=== PATIENT | male | born 2000 | race African-American/Black ===

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

== ENCOUNTER 2018-09-09 18:44 | Emergency (ER) | payer OTHER | END 2018-09-09 20:28 | disposition home or self-care (01) | LOC: ERS 18:44 | DX: Z20.2 Contact with and (suspected) exposure to infections with a predominantly sexual mode of transmission (principal); F32.9 Major depressive disorder, single episode, unspecified | CPT/HCPCS: 99283 ==

== ENCOUNTER 2019-03-08 13:49 | Emergency (ER) | payer OTHER ==
--- NOTE | 2019-03-08 14:53 | RAD ---
LUMBAR SPINE THREE VIEWS: HISTORY: Low back pain. FINDINGS: No fracture, subluxation, or bony destruction is seen. POS: [facility]
== END 2019-03-08 14:32 | disposition home or self-care (01) ==
LOC: SCSER 13:49
DX: S39.012A Strain of muscle, fascia and tendon of lower back, initial encounter (principal); F32.9 Major depressive disorder, single episode, unspecified; X50.1XXA Overexertion from prolonged static or awkward postures, initial encounter
CPT/HCPCS: 72100

== ENCOUNTER 2020-06-02 06:23 | Emergency (ER) | payer SELFPAY ==
[2020-06-02] MEDS ORDERED: Boostrix 0.5 ML (Tdap) VIAL ONE (06:46)
[2020-06-02] MEDS ORDERED: Bupivacaine 0.25% 10 ML VIAL ONE (06:46)
[2020-06-02] MEDS ORDERED: Lidocaine 1% w/Epinephrine 1:100K 20 ML VIAL ONE (06:52)
[2020-06-02] MEDS ORDERED: Bacitracin 1 PK ONE (07:25)
== END 2020-06-02 07:21 | disposition home or self-care (01) ==
LOC: ERS 06:23
DX: S61.012A Laceration without foreign body of left thumb without damage to nail, initial encounter (principal); F32.9 Major depressive disorder, single episode, unspecified; W26.0XXA Contact with knife, initial encounter
CPT/HCPCS: 12001; 90471; 90715; 96372; S0020

== ENCOUNTER 2020-06-23 20:51 | Emergency (ER) | payer SELFPAY ==
--- NOTE | 2020-06-24 06:25 | RAD ---
SINGLE VIEW CHEST: Date: 06/23/2020 COMPARISON: None. HISTORY: Cough and congestion for 2 weeks. FINDINGS: Single view of the chest shows a normal sized cardiomediastinal silhouette. Bilateral pulmonary vascu lar enlargement is seen. There is no evidence of consolidation, mass, or pleural effusions. Lungs are unremarkable. IMPRESSION: No evidence of acute cardiopulmonary disease. POS: [facility]
== END 2020-06-23 23:12 | disposition home or self-care (01) ==
LOC: ERS 20:51
DX: J06.9 Acute upper respiratory infection, unspecified (principal); F17.290 Nicotine dependence, other tobacco product, uncomplicated
CPT/HCPCS: 71045

== ENCOUNTER 2020-06-30 12:09 | Emergency (ER) | payer SELFPAY ==
[2020-06-30 13:23] LABS: Bilirubin Negative (Negative); Blood, Urine Negative (Negative); Clarity Clear (Clear); Glucose, Urine (Dipstick) Normal (Negative); Ketone, Urine Trace mg/dL (Negative); Leukocyte Negative Leu/uL (Negative); Nitrite Negative (Negative); Protein, Urine (Dipstick) 10 mg/dL (Neg-Trace); Specific Gravity, Urine 1.033 (1.002-1.036)
[2020-06-30] MEDS ORDERED: Azithromycin 250 MG TAB ONE ×2 (13:42→13:44)
[2020-06-30] MEDS ORDERED: cefTRIAXone\\ROCEPHIN 250 MG VIAL ONE (13:42)
[2020-06-30] MEDS ORDERED: Lidocaine 1% PF 5 ML VIAL ONE (13:43)
[2020-07-04 10:12] LABS: Chlamydia trachomatis by NAA Negative (Negative)
== END 2020-06-30 13:40 | disposition home or self-care (01) ==
LOC: ERS 12:09
DX: N34.2 Other urethritis (principal); F17.290 Nicotine dependence, other tobacco product, uncomplicated
CPT/HCPCS: 81003; 87491; 87591; 96372; 99283; J0696

== ENCOUNTER 2020-07-04 22:28 | Emergency (ER) | payer SELFPAY | END 2020-07-04 23:32 | disposition left against medical advice (07) | LOC: ERS 22:28 | DX: Z53.21 Procedure and treatment not carried out due to patient leaving prior to being seen by health care provider (principal) ==

== ENCOUNTER 2020-08-23 23:05 | Emergency (ER) | payer SELFPAY | END 2020-08-23 23:58 | disposition left against medical advice (07) | LOC: ERS 23:05 | DX: Z53.21 Procedure and treatment not carried out due to patient leaving prior to being seen by health care provider (principal) ==

== ENCOUNTER 2020-10-18 16:14 | Emergency (ER) | payer SELFPAY ==
[2020-10-18] MEDS ORDERED: cefTRIAXone\\ROCEPHIN 500 MG VIAL ONE (18:27)
[2020-10-18] MEDS ORDERED: Lidocaine 2% PF 5 ML VIAL ONE (18:27)
[2020-10-18] MEDS ORDERED: Lidocaine 1% w/Epinephrine 1:100K 20 ML VIAL ONE (18:28)
[2020-10-18] MEDS ORDERED: Lidocaine 1% PF 5 ML VIAL ONE (18:28)
[2020-10-18 18:36] LABS: Bilirubin Negative (Negative); Blood, Urine Negative (Negative); Clarity Clear (Clear); Glucose, Urine (Dipstick) Normal (Negative); Ketone, Urine Negative (Negative); Leukocyte Negative Leu/uL (Negative); Nitrite Negative (Negative); Protein, Urine (Dipstick) Negative (Neg-Trace); Specific Gravity, Urine 1.022 (1.002-1.036); Urobilinogen Normal mg/dL (Less than 2)
[2020-10-20 22:21] LABS: Chlam.trachomatis by PCR,Urine Not Detected (NotDetected)
== END 2020-10-18 18:56 | disposition home or self-care (01) ==
LOC: ERS 16:14
DX: A64 Unspecified sexually transmitted disease (principal)
CPT/HCPCS: 81003; 87491; 87591; 96372; 99283; J0696; J2001

== ENCOUNTER 2021-03-27 19:43 | Emergency (ER) | payer SELFPAY ==
[2021-03-27 20:22] LABS: Bacteria/HPF None Seen HPF (None Seen); Bilirubin Negative (Negative); Blood, Urine Negative (Negative); Clarity Clear (Clear); Glucose, Urine (Dipstick) Normal (Negative); Ketone, Urine Trace mg/dL (Negative); Leukocyte Negative Leu/uL (Negative); Mucous/LPF 2+ LPF (<2+); Nitrite Negative (Negative); Protein, Urine (Dipstick) 50 mg/dL (Neg-Trace); RBC/HPF 0-3 HPF (0-3); Specific Gravity, Urine 1.038 (1.002-1.036); Squamous Epithelial 0-3 HPF (0-3); Urobilinogen 6 mg/dL (Less than 2); WBC/HPF 0-3 HPF (0-3)
[2021-03-27] MEDS ORDERED: cefTRIAXone\\ROCEPHIN 500 MG VIAL ONE (20:44)
[2021-03-27] MEDS ORDERED: Lidocaine 1% (PF) 30 ML VIAL ONE (20:44)
[2021-03-30 21:48] LABS: Chlam.trachomatis by PCR,Urine Not Detected (NotDetected)
== END 2021-03-27 20:55 | disposition home or self-care (01) ==
LOC: ERS 19:43
DX: R30.0 Dysuria (principal)
CPT/HCPCS: 81003; 81015; 87491; 87591; 96372; 99283; J0696; J2001